=== PATIENT | female | born 1985 | race Caucasian/White ===

== ENCOUNTER → 2016-08-23 | Outpatient (CLI) | payer OTHER, MEDICARE | LOC: KOH-I 15:30 | DX: I82.502 Chronic embolism and thrombosis of unspecified deep veins of left lower extremity (principal); I82.623 Acute embolism and thrombosis of deep veins of upper extremity, bilateral | CPT/HCPCS: 93971 ==

== ENCOUNTER → 2016-09-26 | Outpatient (CLI) | payer OTHER | LOC: KOH-I 12:11 | DX: S93.422A Sprain of deltoid ligament of left ankle, initial encounter (principal) | CPT/HCPCS: 73721 ==